=== PATIENT | female | born 1990 | race African-American/Black ===

== ENCOUNTER 2016-10-04 23:10 | Emergency (ER) | payer MEDICAID, OTHER ==
[~2016-10-04] VITALS: Ht 160 cm; Wt 108.4 kg
[~2016-10-04 23:10] MED LIST: PROM25SU8 PO; SULF-154 PO
[2016-10-04 23:18] VITALS: BP 120/80; PULSE 98; RESP 16; TEMP 98.4; O2SAT 99
[2016-10-04 23:45] VITALS: BP 120/80; PULSE 98; RESP 18; TEMP 98.4; O2SAT 99
[2016-10-05] MEDS ORDERED: SODIUM CHLORIDE 0.9% FLUSH 10 ML FLUSH IVF PRN (00:30)
--- NOTE | 2016-10-05 00:39 | PD ---
HPI Chief Complaint: Library [employer] Problem/Complaint Time Seen by Provider: 00:19 Travel History International Travel<30 days: No Contact w/Intl Traveler<30days: No Traveled to known affect area: No History of Present Illness HPI The patient is a 26-year-old female, A0 who is worried about STD. She has had of vaginal discharge which is foul smelling for the last 2 weeks. It is now developing yellowish greenish discharge and she does have painful urination. She is now on her menstrual period. She denies any fever, joint pain or abdominal pain or pelvic pain. PFSH Past Medical History Diminished Hearing: No Immunizations Current: Yes Tetanus Vaccination: Unknown Influenza Vaccination: No ?: Not LMP: NOW Past Surgical History Oral Surgery: Yes (WISDOM TEETH REMOVAL) Social History Alcohol Use: No Tobacco Use: No Substance Use: No Allergies-Medications (Allergen,Severity, Reaction): Coded Allergies: No Known Allergies (Verified , 10/04/16) Reported Meds & Prescriptions Reported Meds & Active Scripts Active Metronidazole 500 Mg Tab 500 Mg PO TID 7 Days Review of Systems Except as stated in HPI: all other systems reviewed are Neg Physical Exam Narrative GENERAL: The patient is obese, alert, oriented 3 in minimal apparent distress. Her vital signs are normal. SKIN: Focused skin assessment warm/dry. HEAD: Atraumatic. Normocephalic. EYES: Pupils equal and round. No scleral icterus. No injection or drainage. ENT: No nasal bleeding or discharge. Mucous membranes pink and moist. NECK: Trachea midline. No JVD. CARDIOVASCULAR: Regular rate and rhythm. No murmur appreciated. RESPIRATORY: No accessory muscle use. Clear to auscultation. Breath sounds equal bilaterally. GASTROINTESTINAL: Abdomen soft, non-tender, nondistended. Hepatic and splenic margins not palpable. No guarding or rebound is present and, specifically, there is no pelvic tenderness present. MUSCULOSKELETAL: No obvious deformities. No clubbing. No cyanosis. No edema. NEUROLOGICAL: Awake and alert. No obvious cranial nerve deficits. Motor grossly within normal limits. Normal speech. PSYCHIATRIC: Appropriate mood and affect; insight and judgment normal. GENITOURINARY: Normal external genitalia without lesions or erythema. Vaginal vault with blood but no other drainage. Cervical os was closed with bloody drainage. No cervical motion tenderness. Uterus nontender and nonenlarged. Bilateral adnexa nontender without masses. Data Data Last Documented VS Vital Signs Date Time Temp Pulse Resp B/P Pulse Ox O2 Delivery O2 Flow Rate FiO2 10/05/16 01:06 82 18 121/79 100 Room Air 10/04/16 23:45 98.4 Orders Urinalysis - C+S If Indicated (10/05/16 00:15) Beta Hcg (Quant/Titer) (10/05/16 00:19) Complete Blood Count With Diff (10/05/16 00:19) Basic Metabolic Panel (Bmp) (10/05/16 00:19) Gc And Chlamydia Pcr (10/05/16 00:19) Wet Prep Profile (10/05/16 00:19) Sodium Chloride 0.9% Flush (Ns Flush) (10/05/16 00:30) Labs Laboratory Tests Test 10/05/16 10/05/16 00:50 01:00 Urine Color YELLOW Urine Turbidity CLOUDY Urine pH 6.5 Urine Specific Kane 1.031 Urine Protein 30 mg/dL Urine Glucose (UA) NEG mg/dL Urine Ketones TRACE mg/dL Urine Occult Blood LARGE Urine Nitrite NEG Urine Bilirubin NEG Urine Leukocyte Esterase TRACE Urine RBC INNUM /hpf Urine WBC 6-8 /hpf Urine Squamous Epithelial 6-8 /hpf Cells Urine Bacteria RARE /hpf Microscopic Urinalysis Comment CULT NOT INDICATED Clue Cells (Wet Prep) NONE SEEN Vaginal Trichomonas (Wet Prep) NONE SEEN Vaginal Yeast (Wet Prep) NONE SEEN White Blood Count 7.2 TH/MM3 Red Blood Count 4.61 MIL/MM3 Hemoglobin 9.8 GM/DL Hematocrit 31.5 % Mean Corpuscular Volume 68.3 FL Mean Corpuscular Hemoglobin 21.2 PG Mean Corpuscular Hemoglobin 31.0 % Concent Red Cell Distribution Width 16.2 % Platelet Count 357 TH/MM3 Mean Platelet Volume 8.2 FL Neutrophils (%) (Auto) 63.1 % Lymphocytes (%) (Auto) 27.9 % Monocytes (%) (Auto) 4.7 % Eosinophils (%) (Auto) 2.1 % Basophils (%) (Auto) 2.2 % Neutrophils # (Auto) 4.5 TH/MM3 Lymphocytes # (Auto) 2.0 TH/MM3 Monocytes # (Auto) 0.3 TH/MM3 Eosinophils # (Auto) 0.2 TH/MM3 Basophils # (Auto) 0.2 TH/MM3 CBC Comment AUTO DIFF Differential Comment AUTO DIFF CONFIRMED Platelet Estimate NORMAL Platelet Morphology Comment NORMAL Sodium Level 140 MEQ/L Potassium Level 4.2 MEQ/L Chloride Level 105 MEQ/L Carbon Dioxide Level 25.7 MEQ/L Anion Gap 9 MEQ/L Blood Urea Nitrogen 10 MG/DL Creatinine 0.66 MG/DL Estimat Glomerular Filtration 133 ML/MIN Rate Random Glucose 88 MG/DL Calcium Level 8.4 MG/DL Human Chorionic Gonadotropin, LESS THAN 1 Quant MIU/ML MDM Medical Decision Making Medical Screen Exam Complete: Yes Emergency Medical Condition: Yes Medical Record Reviewed: Yes Interpretation(s) The wet prep is negative for clue cells, Trichomonas and yeast. The urine shows cloudy turbidity, trace ketones, large blood, trace leukocyte Estrace with innumerable red cells and 6-8 white cells. Culture is not indicated. The CBC shows a he hematocrit of 31.5 and a hemoglobin of 9.8 but is otherwise normal. The beta-hCG is less than 1. The basic metabolic profile is essentially normal. Differential Diagnosis PID, Trichomonas vaginitis, yeast vaginitis, bacterial vaginosis, cystitis Narrative Course Unfortunately, there are many blood cells from her menstrual period and this can lead to a false negative. The patient will be given a prescription for metronidazole for possible bacterial vaginosis. She has no symptoms of PID. The patient does have a foul-smelling vaginal discharge and may well have bacterial vaginosis. Diagnosis Primary Impression: Bacterial vaginosis Additional Instructions: The metronidazole is taken one tablet 3 times daily. Do not drink alcohol with this medication because he will likely have a bad reaction with alcohol. Your partner does not need to be treated, this is not an STD. Follow-up with her primary care physician or intern brand next week. Med/Other Pt SpecificInfo: Prescription(s) given Scripts Metronidazole 500 Mg [id number] Mg PO TID 7 Days Ref 0 Prov:Abraham Stephenson MD 10/05/16 Disposition: 01 DISCHARGE HOME Condition: Stable Abraham Stephenson MD Oct 05, 2016 00:38
[2016-10-05 01:06] VITALS: BP 121/79; PULSE 82; RESP 18; O2SAT 100
[2016-10-05] MEDS ORDERED: METR500T10 PO (01:08)
[2016-10-05 01:09] LABS: AUTOMATED NEUTROPHIL # 4.5 TH/MM3 (1.8-7.7); BASOPHIL # 0.2 TH/MM3 (0-0.2); BASOPHIL % 2.2 % (0.0-2.0); EOSINOPHIL # 0.2 TH/MM3 (0-0.4); EOSINOPHIL % 2.1 % (0.0-4.0); HEMATOCRIT 31.5 % (35.0-46.0); LYMPH % 27.9 % (9.0-44.0); MEAN CELL VOLUME 68.3 FL (80.0-100.0); MEAN CORPUSCULAR HEMOGLOBIN 21.2 PG (27.0-34.0); MONO % 4.7 % (0.0-8.0); NEUT % 63.1 % (16.0-70.0); PLATELET COUNT 357 TH/MM3 (150-450); RED BLOOD COUNT 4.61 MIL/MM3 (4.00-5.30); RED CELL DISTRIBUTION WIDTH 16.2 % (11.6-17.2); WHITE BLOOD COUNT 7.2 TH/MM3 (4.0-11.0)
[2016-10-05 01:09] LABS: BLOOD, URINE LARGE (NEG); GLUCOSE,URINE NEG (NEG); KETONE, URINE TRACE mg/dL (NEG); NITRITE,URINE NEG (NEG); PH, URINE 6.5 (5.0-8.5)
[2016-10-05 01:11] LABS: URINE COLOR YELLOW (YELLW/STRAW)
[2016-10-05 01:12] LABS: HEMO FLAGS AUTO DIFF
[2016-10-05 01:22] LABS: BACTERIA, URINE RARE /hpf; COMMENT (UR) CULT NOT INDICATED; CULTURE IF INDICATED CULT NOT INDICATED; RBC, URINE INNUM /hpf (0-3)
[2016-10-05 01:22] LABS: CHLORIDE 105 MEQ/L (98-107); POTASSIUM 4.2 MEQ/L (3.5-5.1); SODIUM (NA) 140 MEQ/L (136-145)
[2016-10-05 01:25] LABS: ANION GAP 9 MEQ/L (5-15); BICARBONATE 25.7 MEQ/L (21.0-32.0); BLOOD UREA NITROGEN 10 MG/DL (7-18)
[2016-10-05 01:27] LABS: PLATELET ESTIMATE SMEAR NORMAL (NORMAL); PLATELET MORPHOLOGY NORMAL (NORMAL); SCAN/DIFF AUTO DIFF CONFIRMED
[2016-10-05 01:28] LABS: GLOMERULAR FILTRATION RATE 133 ML/MIN (>89)
[2016-10-05 01:32] LABS: BETA HCG QUANT LESS THAN 1 MIU/ML (0-5)
[2016-10-05] MEDS ORDERED: MACR100C2 PO (01:52)
[2016-10-05] MEDS ORDERED: metroNIDAZOLE 500 MG TAB PO ONE (02:00)
[2016-10-05] MEDS ORDERED: NITROFURANTOIN MONOHYD MACROCR 100 MG CAP PO ONE (02:00)
[2016-10-05 02:04] VITALS: BP 137/67
[2016-10-05 12:23] LABS: CHLAMYDIA PCR NOT DETECTED (NOT DETECT); NEISSERIA PCR NOT DETECTED (NOT DETECT)
== END 2016-10-05 02:06 | disposition home or self-care (01) ==
LOC: PHED 23:10
DX: N76.0 Acute vaginitis (principal); R30.0 Dysuria
CPT/HCPCS: 80048; 81001; 84702; 85025; 87210; 87491; 87591; 99283

== ENCOUNTER 2017-01-24 05:11 | Emergency (ER) | payer MEDICAID ==
[~2017-01-24] VITALS: Ht 162.6 cm; Wt 109.9 kg
[~2017-01-24 05:11] MED LIST changes: +MACR100C2 PO; +METR500T10 PO; -PROM25SU8 PO; -SULF-154 PO
[2017-01-24 05:22] VITALS: BP 140/89; PULSE 89; RESP 16; TEMP 98.3; O2SAT 100
[2017-01-24] MEDS ORDERED: ONDANSETRON HCL 4 MG/2 ML VIAL IV ONE (06:15)
--- NOTE | 2017-01-24 06:15 | PD ---
HPI Chief Complaint: Abdominal Pain Time Seen by Provider: 06:01 Travel History International Travel<30 days: No Contact w/Intl Traveler<30days: No Traveled to known affect area: No History of Present Illness HPI The patient is a 26-year-old female that had nausea and vomiting for 3 days. She had diarrhea yesterday. She did have some lower abdominal pain but this is mostly resolved. She denies any fever. She does have a headache. There is no blood in the vomitus or stool. [facility] Past Medical History Medical History: Denies Significant Hx Diminished Hearing: No Immunizations Current: Yes Tetanus Vaccination: > 5 Years Influenza Vaccination: No ?: Not LMP: 01/23/17 : 0 Past Surgical History Oral Surgery: Yes (WISDOM TEETH REMOVAL) Social History Alcohol Use: Yes ("ON OCCASION") Tobacco Use: No Substance Use: No Allergies-Medications (Allergen,Severity, Reaction): Coded Allergies: No Known Allergies (Verified , 01/24/17) Reported Meds & Prescriptions Reported Meds & Active Scripts Active No Active Prescriptions or Reported Medications Review of Systems Except as stated in HPI: all other systems reviewed are Neg Physical Exam Narrative GENERAL: The patient is alert, mild to moderately dehydrated appearing, in minimal apparent distress with her abdominal pain. Her vital signs show blood pressure 140/89 but otherwise normal. SKIN: Focused skin assessment warm/dry. HEAD: Atraumatic. Normocephalic. EYES: Pupils equal and round. No scleral icterus. No injection or drainage. ENT: No nasal bleeding or discharge. Mucous membranes pink and moist. NECK: Trachea midline. No JVD. CARDIOVASCULAR: Regular rate and rhythm. No murmur appreciated. RESPIRATORY: No accessory muscle use. Clear to auscultation. Breath sounds equal bilaterally. GASTROINTESTINAL: Abdomen soft, non-tender, nondistended. Hepatic and splenic margins not palpable. No guarding or rebound is present. MUSCULOSKELETAL: No obvious deformities. No clubbing. No cyanosis. No edema. NEUROLOGICAL: Awake and alert. No obvious cranial nerve deficits. Motor grossly within normal limits. Normal speech. PSYCHIATRIC: Appropriate mood and affect; insight and judgment normal. Data Data Last Documented VS Vital Signs Date Time Temp Pulse Resp B/P Pulse Ox O2 Delivery O2 Flow Rate FiO2 01/24/17 06:55 75 18 127/69 96 Room Air 01/24/17 05:22 98.3 Orders Sodium Chlor 0.9% 1000 Ml Inj (Ns 1000 M (01/24/17 06:15) Ondansetron Inj (Zofran Inj) (01/24/17 06:15) Complete Blood Count With Diff (01/24/17 06:16) Basic Metabolic Panel (Bmp) (01/24/17 06:16) Lipase (01/24/17 06:16) Labs Laboratory Tests Test 01/24/17 06:20 White Blood Count 8.0 TH/MM3 Red Blood Count 4.58 MIL/MM3 Hemoglobin 9.8 GM/DL Hematocrit 31.9 % Mean Corpuscular Volume 69.6 FL Mean Corpuscular Hemoglobin 21.4 PG Mean Corpuscular Hemoglobin 30.7 % Concent Red Cell Distribution Width 16.0 % Platelet Count 314 TH/MM3 Mean Platelet Volume 8.2 FL Neutrophils (%) (Auto) 57.6 % Lymphocytes (%) (Auto) 30.9 % Monocytes (%) (Auto) 6.0 % Eosinophils (%) (Auto) 2.6 % Basophils (%) (Auto) 2.9 % Neutrophils # (Auto) 4.6 TH/MM3 Lymphocytes # (Auto) 2.5 TH/MM3 Monocytes # (Auto) 0.5 TH/MM3 Eosinophils # (Auto) 0.2 TH/MM3 Basophils # (Auto) 0.2 TH/MM3 CBC Comment AUTO DIFF Differential Comment AUTO DIFF CONFIRMED Sodium Level 137 MEQ/L Potassium Level 3.7 MEQ/L Chloride Level 104 MEQ/L Carbon Dioxide Level 25.7 MEQ/L Anion Gap 7 MEQ/L Blood Urea Nitrogen 13 MG/DL Creatinine 0.66 MG/DL Estimat Glomerular Filtration 133 ML/MIN Rate Random Glucose 85 MG/DL Calcium Level 8.1 MG/DL Lipase 308 U/L [facility] Medical Decision Making Medical Screen Exam Complete: Yes Emergency Medical Condition: Yes Medical Record Reviewed: Yes Interpretation(s) The CBC is normal except for hemoglobin of 9.8 and hematocrit of 31.9. The basic metabolic profile is normal except for a calcium of 8.1. The lipase is normal. Differential Diagnosis Viral gastroenteritis, colitis, bacterial enteritis, electrolyte disorder, dehydration Narrative Course The patient likely has viral gastroenteritis. She needs to increase her liquid intake and is given Phenergan for nausea. She is given 5 days off work, she is a [employer]. Diagnosis Primary Impression: Viral gastroenteritis Additional Instructions: Increase clear liquid intake to avoid dehydration. Initially take the Phenergan every 6 hours for nausea. After a day or 2 you can use it as an as needed drug. Med/Other Pt SpecificInfo: Prescription(s) given Scripts No Active Prescriptions or Reported Meds Disposition: 01 DISCHARGE HOME Condition: Stable Abraham Stephenson MD Jan 24, 2017 06:15
[2017-01-24 06:25] LABS: AUTOMATED NEUTROPHIL # 4.6 TH/MM3 (1.8-7.7); BASOPHIL # 0.2 TH/MM3 (0-0.2); BASOPHIL % 2.9 % (0.0-2.0); EOSINOPHIL # 0.2 TH/MM3 (0-0.4); EOSINOPHIL % 2.6 % (0.0-4.0); HEMATOCRIT 31.9 % (35.0-46.0); LYMPH % 30.9 % (9.0-44.0); LYMPHOCYTE # 2.5 TH/MM3 (1.0-4.8); MEAN CELL VOLUME 69.6 FL (80.0-100.0); MEAN CORPUSCULAR HEMOGLOBIN 21.4 PG (27.0-34.0); MEAN CORPUSCULAR HGB CONC 30.7 % (32.0-36.0); NEUT % 57.6 % (16.0-70.0); PLATELET COUNT 314 TH/MM3 (150-450); RED BLOOD COUNT 4.58 MIL/MM3 (4.00-5.30)
[2017-01-24 06:26] LABS: HEMO FLAGS AUTO DIFF
[2017-01-24 06:32] LABS: POTASSIUM 3.7 MEQ/L (3.5-5.1)
[2017-01-24 06:35] LABS: BICARBONATE 25.7 MEQ/L (21.0-32.0)
[2017-01-24 06:44] LABS: SCAN/DIFF AUTO DIFF CONFIRMED
[2017-01-24] MEDS: SODIUM CHLOR 0.9% 1000 ML INJ 1,000 ML IV SCH ×2 (06:45→06:51)
[2017-01-24 06:55] VITALS: BP 127/69; PULSE 75; RESP 18; O2SAT 96
[2017-01-24 09:05] VITALS: BP 120/70; PULSE 76; RESP 18; O2SAT 98
== END 2017-01-24 09:06 | disposition home or self-care (01) ==
LOC: PHED 05:11
DX: A08.4 Viral intestinal infection, unspecified (principal); R51 Headache
CPT/HCPCS: 80048; 83690; 85025; 96361; 96374; 99284; J2405; J7030